=== PATIENT | female | born 1950 | race Caucasian/White ===

== ENCOUNTER → 2017-03-13 | Outpatient (CLI) | payer MEDICARE, OTHER ==
[~2017-03-13] MED LIST: /WARF25TA PO; ACET50TA PO; CALC1TAB40 PO; CALCTAB53 PO; CENTTAB PO; COUM1TAB17 PO; COUM2.5T17 PO; ENAL10TA2 PO; LYRI75CA PO; MULTTAB4 PO; PERC5TAB12 PO; PERC7.5T12 PO; SENO8.6T5 PO; TYLE325T5 PO; enalapril OR; oxybutynin OR
--- NOTE | 2017-03-13 12:13 | REP ---
Chest two views HISTORY: Preop Comparison: 08/27/2014 The lungs are hyperinflated. The lungs are clear. The heart is normal in size. The pulmonary vasculature is normal in appearance. The bony structure is intact. IMPRESSION: No acute disease. Signed by Lakhwinder Damon MD 03/13/2017 12:04 P
[2017-03-13 12:16] LABS: MEAN CORPUSCULAR HEMOGLOBIN 26.9 pg (27.0-33.0); MEAN CORPUSCULAR HGB CONC 30.8 g/dl (32.0-36.5); MEAN CORPUSCULAR VOLUME 87.5 fl (80.0-96.0); RED CELL DISTRIBUTION WIDTH 14.8 % (11.5-14.5); WHITE BLOOD COUNT 6.8 K/mm3 (4.0-10.0)
[2017-03-13 12:21] LABS: INR 1.06
[2017-03-13 12:32] LABS: ALBUMIN 3.5 GM/DL (3.2-5.2); ALBUMIN/GLOBULIN RATIO 0.88 (1.00-1.93); ALKALINE PHOSPHATASE 70 U/L (45-117); ALT/SGPT 22 U/L (12-78); ANION GAP 10 MEQ/L (8-16); AST/SGOT 17 U/L (15-37); BILIRUBIN,TOTAL 0.3 MG/DL (0.2-1.0); BLOOD UREA NITROGEN 15 MG/DL (7-18); CALCIUM LEVEL 8.9 MG/DL (8.8-10.2); CARBON DIOXIDE LEVEL 26 MEQ/L (21-32); CHLORIDE LEVEL 105 MEQ/L (98-107); CREATININE FOR GFR 0.86 MG/DL (0.55-1.02); GLOMERULAR FILTRATION RATE > 60.0 (>45); GLUCOSE, FASTING 83 MG/DL (80-110); POTASSIUM SERUM 4.2 MEQ/L (3.5-5.1); SODIUM LEVEL 141 MEQ/L (136-145); TOTAL PROTEIN 7.5 GM/DL (6.4-8.2)
--- NOTE | 2017-03-13 15:06 | ECGEPIP ---
Stationary ECG Study [facility] Test Date: 2017-03-13 Pat Name: PARI GILMORE Department: Room: - Gender: F Plastic Surgery Coordinator: NEETA : 1950 Requested By: Trell See Order Number: [id number] Reading MD: Dirk Sykes Measurements Intervals [place] Rate: 68 P: 37 WV: 152 QRS: 56 QRSD: 136 T: 37 QT: 417 QTc: 446 Interpretive Statements SINUS RHYTHM RIGHT BUNDLE BRANCH BLOCK RBBB new compared with 08/27/2014. Electronically Signed On 03-13-2017 15:06:28 EDT by Dirk Sykes
== END ==
LOC: M ADMPAT 10:33
PROVIDERS: ATTEND Orthopaedic Surgery
DX: Z01.818 Encounter for other preprocedural examination (principal); M16.12 Unilateral primary osteoarthritis, left hip; I10 Essential (primary) hypertension; R94.31 Abnormal electrocardiogram [ECG] [EKG]; Z79.01 Long term (current) use of anticoagulants; Z79.899 Other long term (current) drug therapy

== ENCOUNTER 2017-03-27 07:30 | Inpatient (IN) | payer MEDICARE, OTHER ==
[2017-03-13 11:41] VITALS: BP 128/78
[~2017-03-27] VITALS: Ht 162.6 cm; Wt 81.0 kg
[~2017-03-27 07:30] MED LIST changes: -COUM2.5T17 PO
[2017-03-27] MEDS ORDERED: LR 1,000 ML IV ONE (11:15)
[2017-03-27] MEDS ORDERED: PERCOCET 5MG/325MG TAB PO ONE (11:30)
[2017-03-27] MEDS ORDERED: PREGABALIN 75 MG CAP(LYRICA) PO ONE (11:30)
[2017-03-27] MEDS ORDERED: CelecoXIB 400 MG CAP PO ONE (11:30)
[2017-03-27] MEDS ORDERED: MIDAZOLAM INJ 2 MG/2 ML VIAL (J2250) As Ordered ONE (11:41)
[2017-03-27] MEDS ORDERED: LIDOCAINE 2% INJ 100 MG/5 ML SDV (FOR ANES.) As Ordered ONE (11:41)
[2017-03-27] MEDS ORDERED: PROPOFOL 200 MG/20 ML VIAL As Ordered ONE ×3 (11:41→15:45)
[2017-03-27] MEDS ORDERED: fentaNYL 100 MCG/2 ML INJECTION (J3010) As Ordered ONE ×2 (11:41→16:36)
[2017-03-27] MEDS ORDERED: COUM1TAB17 PO (12:04)
[2017-03-27] MEDS ORDERED: BUPIVACAINE/EPIN 0.25% 30 ML VIAL As Ordered ONE (13:26)
[2017-03-27] MEDS ORDERED: TRANEXAMIC ACID 100 MG/ML 10ML VIAL As Ordered ONE ×2 (13:26→14:00)
[2017-03-27] MEDS ORDERED: ceFAZolin 1GM INJ (J0690) As Ordered ONE (13:27)
[2017-03-27] MEDS ORDERED: EPINEPHrine 1MG/ML INJ 30ML MD-VIAL As Ordered ONE (13:27)
[2017-03-27] MEDS ORDERED: EPINEPHrine INJ 1 MG/ML 1ML AMP As Ordered ONE (13:27)
--- NOTE | 2017-03-27 13:39 | HPE ---
DATE OF ADMISSION: 03/27/2017 CHIEF COMPLAINT: Left hip pain and stiffness. HISTORY OF PRESENT ILLNESS: This is a pleasant 66-year-old female patient with progressively worsening left hip pain and stiffness. She has failed to improve with conservative management. She has pain with weightbearing activities and activities of daily living. She has elected for surgery for her continued symptoms. She has consented for a left total hip arthroplasty by Dr. Chavez. X-rays of the left hip notable for end-stage degenerative changes of the left hip. Medical optimization by Dr. Oliver as well as a cardiology consult were completed preoperatively. ALLERGIES: No known drug allergies. CURRENT MEDICATIONS: - calcium 600 mg 2 tablets once a day - Enalapril 10 mg 1 tablet once per day - multivitamins - Senokot 50 mg tablet 1 tablet once per day MEDICAL HISTORY: 1. Hypertension. 2. Bundle branch block on the right side. 3. Symptomatic osteoarthritis left hip. PAST SURGICAL HISTORY: Notable for a hip replacement and a knee replacement. SOCIAL HISTORY: She does not smoke. She does not use alcohol. She is retired. REVIEW OF SYSTEMS: Denies fever or chills. Denies chest pain, shortness breath or cough. Denies difficulty breathing. Denies abdominal pain. Denies nausea or vomiting. Has persistent pain in her left hip with weightbearing activities and activities of daily living. FAMILY HISTORY: Noncontributory. PHYSICAL EXAMINATION: Reveals an alert, well-nourished, well-developed female patient. She walks with a limping gait. She favors her left side. There is decreased internal-external rotation of the left hip. There is irritability with hip range of motion. Straight leg raise testing is negative on exam. The skin around the hip is intact. No erythema, edema or ecchymosis. Well-perfused left lower extremity. Neck is supple without adenopathy or jugular venous distention (JVD). Lungs are clear to auscultation without rales or wheeze. Heart: Regular rate and rhythm. Abdomen: Bowel sounds are present. Vital signs: Blood pressure 110/72, pulse 70, height 63 inches, weight 185 pounds, body mass index (BMI) 32. LABORATORY DATA: Reviewed and notable for decreased hematocrit and hemoglobin , otherwise unremarkable. Nasal and sinus culture is negative. Urine culture negative. Urinalysis within normal limits. Chest x-ray and electrocardiogram (EKG) not present for review. IMPRESSION: Symptomatic osteoarthritis of the left hip. PLAN: She has consented for a left total hip arthroplasty by Dr. Chavez. MARY
[2017-03-27] MEDS ORDERED: ePHEDrine SULFATE 25 MG/5 ML(5MG/ML) SYRINGE As Ordered ONE (14:12)
[2017-03-27] MEDS: fentaNYL 100 MCG/2 ML INJECTION (J3010) IV PRN ×4 (16:37→17:00)
[2017-03-27] MEDS ORDERED: HYDROmorphone HCL 1 MG/ML SYRINGE (J1170) IV PRN ×2 (17:00)
[2017-03-27] MEDS ORDERED: LR 1,000 ML IV SCH (17:00)
[2017-03-27] MEDS ORDERED: WARFARIN SOD 4 MG TAB PO ONE (17:00)
[2017-03-27] MEDS ORDERED: ONDANSETRON 4MG/2ML VIAL (J2405) IV PRN ×2 (17:00→17:15)
[2017-03-27] MEDS: PERCOCET 5MG/325MG TAB PO PRN ×2 (17:04→21:43)
--- NOTE | 2017-03-27 17:07 | CR.PDOC ---
[facility] Consultation Consultation DATE OF CONSULTATION: 03/27/17 REFERRING PROVIDER: Deon Estrella M.D. ATTENDING PHYSICIAN: Dr. Chavez REASON FOR CONSULTATION/CHIEF COMPLAINT: . HISTORY OF PRESENT ILLNESS: . 66-year-old female with past medical history of hypertension, baseline right bundle branch block, and osteoarthritis was admitted to [facility] for elective left total hip arthroplasty. At this time, the patient states that she is feeling relatively well and denies any acute complaints of fevers, chills, chest pain, shortness of breath, abdominal pain, or any nausea/vomiting/diarrhea. The hospitalist service has been consulted to aid in the medical management of the patient's chronic comorbidities. ALLERGIES: Please see below. HOME MEDICATIONS: Please see below. PAST MEDICAL HISTORY: Noted in HPI. PAST SURGICAL HISTORY: History of hip replacement and knee replacement in the past FAMILY HISTORY: Noncontributory SOCIAL HISTORY: Denies alcohol, tobacco, illicit drug use. Functionally independent at baseline. REVIEW OF SYSTEMS: 10 point review of systems negative unless otherwise specified in HPI. PHYSICAL EXAMINATION: VITAL SIGNS: Please see below. GENERAL APPEARANCE: . Awake, alert, in no acute distress HEENT: . Normocephalic, atraumatic RESPIRATORY: . Clear to auscultation bilaterally CARDIOVASCULAR: . Normal rate, normal S1, S2 ABDOMEN: . Soft, nontender, nondistended EXTREMITIES: . Left hip noted to be wrapped in surgical dressing, with limited range of motion secondary to recent surgery. Patient noted to be neurovascularly intact distally LABORATORY DATA: Please see below. ASSESSMENT/PLAN: Status post left total hip arthroplasty Pain management and DVT prophylaxis as per primary team Hypertension, stable Continue enalapril History of right bundle branch block DVT prophylaxis As per orthopedic surgery The patient will be followed by my colleague, Dr. Romero starting 03/28/17 at 7 AM. Thank you for allowing us to participate in the care of this patient. Vital Signs/I&O Vital Signs Date Time Temp Pulse Resp B/P (MAP) Pulse Ox O2 Delivery O2 Flow Rate FiO2 03/27/17 16:53 98.8 82 128/78 03/27/17 16:53 16 95 Room Air Allergies Coded Allergies: No Known Allergies (Unverified , 03/13/17) Home Medications Scheduled (Calcium & Magnesium + Zin 334-134-5 mg) 1 Tab Tab, 2 TAB PO DAILY, (Reported) Enalapril Maleate (Enalapril Maleate) 10 Mg Tab, 10 MG PO DAILY, (Reported) Multivitamins (Centrum Silver) 1 Tab Tab, 1 TAB PO DAILY, (Reported) Senna (Senokot) 8.6 Mg Tab, 1 TAB PO QHS, (Reported) Scheduled PRN Acetaminophen (Tylenol) 325 Mg Tab, 650 MG PO Q4HP PRN for PAIN, (Reported) Miscellaneous Medications Warfarin Sod (Coumadin) 5 Mg Tab, 5 MG PO, (Reported) DEON ESTRELLA MD Mar 27, 2017 17:07
[2017-03-27] MEDS ORDERED: traMADol 50 MG TAB PO PRN (17:15)
[2017-03-27] MEDS ORDERED: ACETAMINOPHEN 325 MG TAB PO PRN (17:15)
[2017-03-27] MEDS ORDERED: FLEET ENEMA PR PRN (17:15)
[2017-03-27] MEDS: D5W/0.45% SODIUM CHLORIDE 1,000 ML IV SCH ×2 (17:15→21:01)
[2017-03-27] MEDS ORDERED: ACETAMINOPHEN TAB 650MG DOSE (2X325MG) PO PRN (17:15)
[2017-03-27] MEDS: MORPHINE 2 MG/ML 1ML SYRINGE IV PRN ×3 (17:16→17:55)
[2017-03-27 18:30] VITALS: BP 162/80
[2017-03-27 19:00] VITALS: BP 160/82
[2017-03-27 20:00] VITALS: BP 143/72
[2017-03-27] MEDS: SENNA 8.6 MG TAB (SENOKOT) PO SCH (20:58)
[2017-03-27] MEDS: SENOKOT S TAB PO SCH (20:59)
[2017-03-27 21:00] VITALS: BP 133/76
[2017-03-27 22:00] VITALS: BP 126/74
[2017-03-27 23:00] VITALS: BP 127/74
[2017-03-28 03:00] VITALS: BP 134/88
--- NOTE | 2017-03-28 05:39 | RO ---
DATE OF PROCEDURE: 03/27/2017 PREOPERATIVE DIAGNOSIS: Left hip osteoarthritis. POSTOPERATIVE DIAGNOSIS: Left hip osteoarthritis. PROCEDURE PERFORMED: Left total hip replacement. SURGEON: Trell Chavez MD MORTGAGE LOAN ASSISTANT: CAREN Lyon ANESTHESIA: Spinal. ESTIMATED BLOOD LOSS: Less than 100, replaced with crystalloid. COMPLICATIONS: None. COMPONENTS USED: Include DePuy Climax, size 4 femoral stem, +5 neck length, 36 mm femoral head . [place] hole eliminator, 52 mm acetabular shell, 36 mm acetabular liner. INDICATIONS: Progressive discomforts in the left hip. Imaging studies suggest progressive arthritic change. History of prior right hip replacement, did well. The patient has elected for operative intervention. Consent reviewed in detail with the patient including clarke discussion of the pathology involved, the procedure proposed, alternatives including doing nothing and risks including but not limited to pain, failure, infection, bleeding, blood loss, incomplete relief of symptoms, need for additional surgery, blood clots, dislocation and other issues. The patient agrees to proceed. OPERATIVE COURSE: Identified in the holding area. Site side verified. Brought to the operating room where the spinal anesthesia was administered. She was positioned for exposure of the left hip in the lateral decubitus position on the [place] positioner. Once this was accomplished, she was sterilely prepped, draped in the usual fashion. The approach is a modified Hardinge approach. I stood on the patient's posterior, Mr. Stuart stood anterior. I outlined the incision with a marking pen based on palpation of the greater trochanter. The incision was approximately 12 cm long, infiltrated with 0.25% Marcaine with epinephrine, made with a 10 blade knife, developed down through skin and subcuticular tissues. Dissection continued to the lateral fascia, which was opened parallel to its fibers and Sal scissor utilized to open proximal and distal exposing the abductor mechanism. Split was created at the 2-o'clock position. Retractors were installed. The minimus and hip capsule were opened using the hot knife. The abductor mechanism was reflected off the greater trochanter at its anterior aspect leaving a cuff tissue for later repair. This dissection continued into the vastus lateralis. Hip capsule was opened and the dissection continued so that the lesser trochanter could be palpated when the hip was rotated. The reflected head of the vastus was also released from the anterior acetabulum. Bone hook was applied and Mr. Stuart assisted in dislocating the hip. Once this was accomplished, appropriate retractors were utilized. Canal opening reamer was utilized, followed by the canal finding reamer, followed by the lateralizing reamer and then we reamed up through a size 4 conical reamer. While we had templated a 5, the 4 reamer seemed to be about what we could get in terms of tight fit distally. I could not get up through 5. A cookie cutter was utilized to remove cancellous bone from the calcar. Broaches were utilized through a size 4 broach, which seemed to fit appropriately. Calcar planer was utilized. The lesser trochanter was approximately one fingerbreadth from the femoral neck cut , which had been made prior to broaching. The broach was removed. Attention was turned the acetabulum. The anterior and posterior retractors were installed. Acetabular labrum was removed using the hot knife and the floor the acetabulum was cleared of soft tissue using the hot knife. The transverse acetabular ligament was also released. At this point, I utilized hemispherical reamers through a size 51 to ream the acetabulum and I trialed with a 51, 52 trial, which seemed to fit appropriately. Irrigation was accomplished. The non trial acetabular shell was obtained and installed using the targeting device impacted into place using a mallet. It was verified to be in the floor of the acetabulum. [place] hole eliminator installed. Pulse lavage irrigation accomplished. Non trial 36 mm acetabular liner was installed, impacted into place. We verified the liner was set. Attention turned to the femoral side. I installed the 4 broach and we trialed with a +5 neck length standard. This seemed to fit appropriately with the appropriate soft tissue tension, instability and internal rotation and deep flexion as well as extension in external rotation. At this stage, trial components were removed. I did place the some of the tranexamic acid (TXA) solution in the acetabulum. I obtained the non trial femoral component. We irrigated the femoral canal and installed the non trial femoral component. The femoral component was seated similar to the position of the broach and therefore, we went straight to the 36 mm +5 neck length femoral head, which was impacted into place with a nylon impactor. The hip was then reduced. The remaining TXA was instilled into the wound and allowed to stand for a minute. Once this was accomplished, Mr. Stuart and I closed the arthrotomy including repair of capsular tissue, medius and abductor mechanism tissue to the greater trochanter, followed by repair of the lateral fascia using a running Stratafix type stitch. Deep tissue was reapproximated using interrupted stitch including dermal stitches. Once this was accomplished, Prineo dressing was applied and the patient was then moved to the recovery room in good condition. The patient was moved to the supine position as the Aaron table was disassembled. A pillow was placed between the patient's knees. For further details, please refer to medical record. Please note that Mr. Stuart was present and participated in the entirety of the case in the capacity of assistant portfolio manager. MARY
[2017-03-28 06:00] VITALS: BP 146/68
[2017-03-28 06:32] LABS: INR 1.15
[2017-03-28 06:35] LABS: MEAN CORPUSCULAR HEMOGLOBIN 27.4 pg (27.0-33.0); MEAN CORPUSCULAR HGB CONC 30.9 g/dl (32.0-36.5); MEAN CORPUSCULAR VOLUME 88.6 fl (80.0-96.0); RED CELL DISTRIBUTION WIDTH 14.7 % (11.5-14.5); WHITE BLOOD COUNT 8.3 K/mm3 (4.0-10.0)
[2017-03-28 06:36] LABS: ANION GAP 5 MEQ/L (8-16); BLOOD UREA NITROGEN 14 MG/DL (7-18); CALCIUM LEVEL 8.4 MG/DL (8.8-10.2); CARBON DIOXIDE LEVEL 29 MEQ/L (21-32); CHLORIDE LEVEL 106 MEQ/L (98-107); GLOMERULAR FILTRATION RATE > 60.0 (>45); GLUCOSE, FASTING 109 MG/DL (80-110); MAGNESIUM LEVEL 2.1 MG/DL (1.8-2.4); POTASSIUM SERUM 4.4 MEQ/L (3.5-5.1); SODIUM LEVEL 140 MEQ/L (136-145)
[2017-03-28] MEDS: SENNA 8.6 MG TAB (SENOKOT) PO SCH ×2 (08:54→20:21)
[2017-03-28] MEDS: MOM 30ML SUSPENSION UDC PO SCH (08:54)
[2017-03-28] MEDS: MULTIVITAMINS/MINERALS THERAP 1 TAB PO SCH (08:54)
[2017-03-28] MEDS: ENALAPRIL MALEATE 10 MG TAB PO SCH (08:55)
[2017-03-28] MEDS: PERCOCET 5MG/325MG TAB PO PRN ×3 (08:56→20:21)
[2017-03-28] MEDS ORDERED: CelecoXIB (CeleBREX) 100 MG CAP PO ONE (09:00)
[2017-03-28] MEDS ORDERED: ENALAPRIL MALEATE 10 MG TAB PO SCH (09:00)
[2017-03-28 10:00] VITALS: BP 124/64
--- NOTE | 2017-03-28 10:53 | REP ---
Clinical: Status post arthroplasty. Technique: AP and cross-table lateral views. Findings: The patient is status post left hip replacement with normal positioning and appearance to the femoral and acetabular components. Overlying postsurgical changes appreciated. Impression: Satisfactory left hip replacement radiographs. Signed by Alden Parker MD 03/28/2017 10:45 A
[2017-03-28 14:00] VITALS: BP 129/72
--- NOTE | 2017-03-28 14:00 | IPNPDOC ---
Text Note Date of Service The patient was seen on 03/28/17. NOTE Subjective: Patient is a 66 year old female with a PMHx of HTN, Hx of RBBB and Osteoarthritis who presented to [facility] for an elective L total hip arthroplasty. Patient was seen and examined at the bedside. Currently she notes that she is tolerating her hip pain. She notes that she doesn't have any nausea or vomiting. She notes that she hasn't had a bowel movement or passed any gas at this time. Objective: Vitals (See below) General: Lying in bed, no acute distress, comfortable, AAOx3 HEENT: NC, AT CVS: RRR, +S1S2 Lungs: Fair air entry b/l, -w/r/r Abdomen: Soft, ND, NT, +BSx4 Extremities: - Edema, - Calf tenderness Assessment and plan: Left hip pain - likely 2/2 osteoarthritis - s/p Left total hip arthroplasty ( POD #1) - Pain management and DVT prophylaxis as per primary team - Physical therapy will start today HTN - BP adequately controlled - c/w Enalapril Hx of RBBB DVT prophylaxis - As per primary team VSBenjamin, I+O VSBenjamin, I+O Laboratory Tests 03/28/17 05:52 Red Blood Count 3.73 L, Mean Corpuscular Volume 88.6, Mean Corpuscular Hemoglobin 27.4, Mean Corpuscular Hemoglobin Concent 30.9 L, Red Cell Distribution Width 14.7 H, Calcium Level 8.4 L Vital Signs Date Time Temp Pulse Resp B/P (MAP) Pulse Ox O2 Delivery O2 Flow Rate FiO2 03/28/17 09:26 12 03/28/17 08:55 146/68 03/28/17 08:30 Room Air 03/28/17 06:00 98.1 76 100 I&O- Last 24 Hours up to 6 AM 03/28/17 06:00 Intake Total 3480 ml Output Total 1550 ml Balance 1930 ml MARSHALL LEROY MD Mar 28, 2017 14:00
[2017-03-28] MEDS ORDERED: WARFARIN SOD 5 MG TAB PO ONE (17:00)
[2017-03-28] MEDS: SENOKOT S TAB PO SCH (20:22)
[2017-03-28 22:00] VITALS: BP 91/55
[2017-03-29 06:00] VITALS: BP 110/68
[2017-03-29] MEDS: PERCOCET 5MG/325MG TAB PO PRN ×2 (06:42→11:53)
[2017-03-29 07:07] LABS: MEAN CORPUSCULAR HEMOGLOBIN 27.6 pg (27.0-33.0); MEAN CORPUSCULAR HGB CONC 31.9 g/dl (32.0-36.5); MEAN CORPUSCULAR VOLUME 86.6 fl (80.0-96.0); RED CELL DISTRIBUTION WIDTH 14.7 % (11.5-14.5); WHITE BLOOD COUNT 11.2 K/mm3 (4.0-10.0)
[2017-03-29 07:11] LABS: INR 1.41
[2017-03-29 07:31] LABS: ANION GAP 6 MEQ/L (8-16); BLOOD UREA NITROGEN 20 MG/DL (7-18); CALCIUM LEVEL 8.1 MG/DL (8.8-10.2); CARBON DIOXIDE LEVEL 27 MEQ/L (21-32); CHLORIDE LEVEL 104 MEQ/L (98-107); CREATININE FOR GFR 0.98 MG/DL (0.55-1.02); GLOMERULAR FILTRATION RATE > 60.0 (>45); GLUCOSE, FASTING 108 MG/DL (80-110); MAGNESIUM LEVEL 2.6 MG/DL (1.8-2.4); POTASSIUM SERUM 3.8 MEQ/L (3.5-5.1); SODIUM LEVEL 137 MEQ/L (136-145)
[2017-03-29] MEDS ORDERED: PERC5TAB12 PO (08:46)
[2017-03-29] MEDS ORDERED: COUM2.5T17 PO (08:46)
[2017-03-29] MEDS: MOM 30ML SUSPENSION UDC PO SCH (09:00)
[2017-03-29 09:22] VITALS: BP 110/68
[2017-03-29] MEDS: MULTIVITAMINS/MINERALS THERAP 1 TAB PO SCH (09:22)
[2017-03-29] MEDS: ENALAPRIL MALEATE 10 MG TAB PO SCH (09:22)
[2017-03-29] MEDS: SENNA 8.6 MG TAB (SENOKOT) PO SCH (09:22)
--- NOTE | 2017-03-29 13:11 | IPNPDOC ---
Text Note Date of Service The patient was seen on 03/29/17. NOTE Subjective: Patient is a 66 year old female with a PMHx of HTN, Hx of RBBB and Osteoarthritis who presented to [facility] for an elective L total hip arthroplasty. Patient was seen and examined at the bedside. She notes that she is looking forward to getting home and continuing physical therapy. She notes no issues today, has had bowel movements. Tolerating the pain and only requiring minimal pain medications. Objective: Vitals (See below) General: Lying in bed, no acute distress, comfortable, AAOx3 HEENT: NC, AT CVS: RRR, +S1S2 Lungs: Fair air entry b/l, -w/r/r Abdomen: Soft, ND, NT, +BSx4 Extremities: - Edema, - Calf tenderness Assessment and plan: Left hip pain - likely 2/2 osteoarthritis - s/p Left total hip arthroplasty ( POD #2) - Pain management and DVT prophylaxis as per primary team - Physical therapy will likely provide clearance today HTN - BP remains well controlled - c/w Enalapril Hx of RBBB - no acute interventions required DVT prophylaxis - As per primary team VSBenjamin, I+O VSBenjamin, I+O Laboratory Tests 03/29/17 06:51 Red Blood Count 3.46 L, Mean Corpuscular Volume 86.6, Mean Corpuscular Hemoglobin 27.6, Mean Corpuscular Hemoglobin Concent 31.9 L, Red Cell Distribution Width 14.7 H, Calcium Level 8.1 L Vital Signs Date Time Temp Pulse Resp B/P (MAP) Pulse Ox O2 Delivery O2 Flow Rate FiO2 03/29/17 12:23 14 03/29/17 09:22 110/68 03/29/17 08:01 Room Air 03/29/17 06:00 99.0 93 97 I&O- Last 24 Hours up to 6 AM 03/29/17 06:00 Intake Total 2040 ml Output Total 1250 ml Balance 790 ml MARSHALL LEROY MD Mar 29, 2017 13:11
--- NOTE | 2017-04-12 10:33 | DSES ---
DATE OF ADMISSION: 03/27/2017 DATE OF DISCHARGE: 03/29/2017 ATTENDING PHYSICIAN: Dr. Chavez ADMITTING DIAGNOSIS: Osteoarthritis left hip. OTHER DIAGNOSES: Hypertension. Right bundle branch block. DISCHARGE DIAGNOSIS: Osteoarthritis left hip status post left total hip arthroplasty. OPERATION PERFORMED: Left total hip arthroplasty. HISTORY: This is a pleasant, 66-year-old female patient with progressively worsening left hip pain and stiffness. She failed to improve with conservative management. She was admitted for elective hip replacement on the left side. HOSPITAL COURSE: The patient was admitted on day of surgery, underwent a left total hip arthroplasty, which was uneventful. She did well in the postoperative period, and her hospital course was without complications. She was up with physical therapy per their protocol and her pain was controlled. On day of discharge, she was doing well weightbearing as tolerated on her left lower extremity. She will use adjusted dose Coumadin and thromboembolic deterrent (BRENDAN) stockings for 30 days for postoperative for deep venous thrombosis (DVT) prophylaxis. She will followup in our office in 10-14 days for surgical followup. She will resume her preoperative medications and diet. She use oral pain medications for pain control. She was given instructions to include but not limited to wound monitoring and activity limitations. Please refer the medical record further details.
== END 2017-03-29 14:30 | disposition home health service (06) | DRG 470 ==
LOC: M OR 11:10 → M MS5PR 18:10
PROVIDERS: ADMIT Orthopaedic Surgery; ATTEND Orthopaedic Surgery
PROC: 0SRB04A Replacement of Left Hip Joint with Ceramic on Polyethylene Synthetic Substitute, Uncemented, Open Approach (ICD-10-PCS; principal; 2017-03-27 13:05)
DX: M16.12 Unilateral primary osteoarthritis, left hip (principal); I10 Essential (primary) hypertension; I45.10 Unspecified right bundle-branch block; Z96.641 Presence of right artificial hip joint; Z96.659 Presence of unspecified artificial knee joint; Z79.899 Other long term (current) drug therapy

== ENCOUNTER → 2019-05-20 | Outpatient (REF) ==
[~2019-05-20] MED LIST changes: -/WARF25TA PO; -ACET50TA PO; +COUM1TAB18 PO; +COUM2.5T17 PO; +MAPA500T17 PO
== END ==
LOC: M LAB LCGH 15:06
PROVIDERS: ATTEND Surgery
DX: C18.9 Malignant neoplasm of colon, unspecified (principal)

== ENCOUNTER → 2020-01-12 | Outpatient (CLI) | payer MEDICARE, OTHER | LOC: M LABSMTC 10:20 | PROVIDERS: ATTEND Physical Medicine & Rehabilitation | DX: Z03.818 Encounter for observation for suspected exposure to other biological agents ruled out (principal) ==

== ENCOUNTER → 2020-02-01 | Outpatient (CLI) | payer MEDICARE, OTHER ==
[~2020-02-01] MED LIST changes: +ENAL-36 PO; -ENAL10TA2 PO
== END ==
LOC: M LABSMTC 11:56
PROVIDERS: ATTEND Orthopaedic Surgery
DX: Z11.59 Encounter for screening for other viral diseases (principal); Z20.828 Contact with and (suspected) exposure to other viral communicable diseases

== ENCOUNTER 2021-03-15 13:57 | Outpatient (CLI) | payer MEDICARE, OTHER ==
[~2021-03-15] VITALS: Ht 162.6 cm; Wt 99.4 kg
[2021-03-15] MEDS ORDERED: ZOLEDRONIC ACID 5 MG in IV 1 EA IV ONE (14:00)
[2021-03-15 14:10] VITALS: BP 137/70
[2021-03-15] MEDS ORDERED: PREG50CA PO (14:50)
[2021-03-15] MEDS ORDERED: VITACAP31 PO (14:51)
[2021-03-15 15:10] VITALS: BP 141/83
== END 2021-03-15 15:30 | disposition home or self-care (01) ==
LOC: M INFU 13:57
PROVIDERS: ATTEND Internal Medicine Endocrinology, Diabetes & Metabolism
DX: M81.0 Age-related osteoporosis without current pathological fracture (principal)
CPT/HCPCS: 96365; J3489